=== PATIENT | female | born 1960 | race Caucasian/White ===

== ENCOUNTER 2017-06-12 16:44 | Emergency (ER) | payer BC ==
--- NOTE | 2017-06-12 18:01 | RAD ---
2 VIEWS CHEST: Date: 06/12/17 PROVIDED CLINICAL HISTORY: Cough. FINDINGS: Comparison made with study dated 02/28/17. Cardiac and mediastinal silhouette is unchanged in appearance. Vascular calcification involves the ao rtic arch. No definite focal consolidation, pleural fluid, or pneumothorax apparent. IMPRESSION: No definite evidence for an acute cardiopulmonary abnormality. POS: [facility]
[2017-06-12 19:23] LABS: #Basophils 0.1 thou/uL (0.0-0.2); #Eosinphils 0.6 thou/uL (0.0-0.7); #Lymphocytes 3.3 thou/uL (1.20-3.40); #Monocytes 0.8 thou/uL (0.11-0.59); #Neutrophils 7.6 thou/uL (1.40-6.50); %Basophils 0.9 % (0.0-1.0); %Eosinophils 4.6 % (0.0-10.0); %Lymphocytes 26.6 % (21.0-51.0); %Monocytes 6.2 % (0.0-10.0); Hematocrit 42.4 % (36.0-47.0); Red Blood Cell (RBC) Count 4.71 mill/uL (4.20-5.40); White Blood Cell (WBC) Count 12.3 thou/uL (4.8-10.8)
[2017-06-12] MEDS ORDERED: Albuterol Sulfate 2.5 mg/0.5 ml Neb ONE (19:23)
[2017-06-12] MEDS ORDERED: Ipratropium Bromide 2.5 ml Neb ONE (19:23)
[2017-06-12] MEDS ORDERED: methylPREDNISolone Sod Succ/PF 125 MG/2 ML VIAL ONE (19:26)
[2017-06-12 19:38] LABS: ALT (SGPT) 19 U/L (8-55); AST (SGOT) 14 U/L (5-34); Alkaline Phosphatase 53 U/L (40-150); Anion Gap 17 mmol/L (10-20); BUN (Urea Nitrogen) 8 mg/dL (9.8-20.1); Bilirubin, Total 0.3 mg/dL (0.2-1.2); Calc. Creatinine Clearance 0 mL/min (70-130); Calcium 9.8 mg/dL (7.8-10.44); Carbon Dioxide 24 mmol/L (22-29); Chloride 101 mmol/L (98-107); Estimated GFR-MDRD 79; Globulin 3.5 g/dL (2.4-3.5)
--- NOTE | 2017-06-17 11:40 | EKG ---
Test Reason : Blood Pressure : / mmHG Vent. Rate : 098 BPM Atrial Rate : 098 BPM P-R Int : 124 ms QRS Dur : 086 ms QT Int : 332 ms P-R-T Axes : 068 061 056 degrees QTc Int : 423 ms Normal sinus rhythm Possible Left atrial enlargement ST abnormality, possible digitalis effect Abnormal ECG Confirmed by MARTITA ABAD D.O. ([id number]), manager editorial HEATHER CRUZ ([id number]) on 06/17/2017 11:40:22 AM Referred By: Confirmed By:MARTITA ABAD D.O.
== END 2017-06-12 20:36 | disposition home or self-care (01) ==
LOC: SCSER 16:44
DX: J44.1 Chronic obstructive pulmonary disease with (acute) exacerbation (principal); I10 Essential (primary) hypertension; E78.00 Pure hypercholesterolemia, unspecified; F41.9 Anxiety disorder, unspecified; F17.210 Nicotine dependence, cigarettes, uncomplicated
CPT/HCPCS: 71020; 80053; 82553; 83880; 84484; 85025; 93005; 94640; 96374; J2930; J7611; J7644

== ENCOUNTER 2017-06-23 18:33 | Emergency (ER) | payer BC ==
[2017-06-23] MEDS ORDERED: methylPREDNISolone Sod Succ/PF 125 MG/2 ML VIAL ONE (18:53)
[2017-06-23] MEDS ORDERED: Magnesium Sulfate 2 GM/NS 0.9% 50 ML BAG ONE (18:53)
[2017-06-23] MEDS ORDERED: Water For Inject, Bacteriostat 30 ML ONE (18:53)
[2017-06-23] MEDS ORDERED: Ondansetron HCl/PF 4 MG/2 ML Vial ONE (18:53)
[2017-06-23 19:00] LABS: #Basophils 0.1 thou/uL (0.0-0.2); #Lymphocytes 0.7 thou/uL (1.20-3.40); #Monocytes 0.5 thou/uL (0.11-0.59); #Neutrophils 7.3 thou/uL (1.40-6.50); %Basophils 0.9 % (0.0-1.0); %Lymphocytes 8.6 % (21.0-51.0); %Monocytes 5.9 % (0.0-10.0); %Neutrophils 84.6 % (42.0-75.0); Hemoglobin 13.3 g/dL (12.0-16.0); Mean Corpuscular HGB CONC 33.1 g/dL (32.0-36.0); Mean Corpuscular Hemoglobin 29.5 pg (27.0-31.0); Mean Corpuscular Volume 89.3 fl (81.0-99.0); Mean Platelet Volume 6.9 fL (7.4-10.4); Platelet Count 419 thou/uL (130-400); RBC Distribution Width 11.5 % (11.5-14.5); Red Blood Cell (RBC) Count 4.49 mill/uL (4.20-5.40); White Blood Cell (WBC) Count 8.6 thou/uL (4.8-10.8)
[2017-06-23] MEDS ORDERED: Ketorolac Tromethamine 30 MG/ML VIAL ONE (19:01)
[2017-06-23 19:14] LABS: ALT (SGPT) 30 U/L (8-55); AST (SGOT) 24 U/L (5-34); Albumin 4.3 g/dL (3.5-5.0); Alkaline Phosphatase 58 U/L (40-150); Anion Gap 19 mmol/L (10-20); BUN (Urea Nitrogen) 11 mg/dL (9.8-20.1); Bilirubin, Total 0.2 mg/dL (0.2-1.2); CK (CPK) 374 U/L (29-168); Calc. Creatinine Clearance 0 mL/min (70-130); Calcium 9.6 mg/dL (7.8-10.44); Carbon Dioxide 20 mmol/L (22-29); Chloride 99 mmol/L (98-107); Estimated GFR-MDRD 75; Globulin 3.6 g/dL (2.4-3.5); Glucose 165 mg/dL (70-105); Lipase 11 U/L (8-78); Potassium 4.1 mmol/L (3.5-5.1); Protein, Total 7.9 g/dL (6.0-8.3); Sodium 134 mmol/L (136-145)
[2017-06-23 19:15] LABS: CKMB 3.6 ng/mL (0-6.6); Troponin I Less than 0.010 ng/mL (< 0.028)
--- NOTE | 2017-06-23 19:42 | RAD ---
NO DICTATION POS: [facility]
[2017-06-23] MEDS ORDERED: Albuterol Sulfate 2.5 mg/0.5 ml Neb ONE (19:44)
[2017-06-23] MEDS ORDERED: Albuterol Sulfate 2.5 mg/3 ml Neb ONE (19:45)
--- NOTE | 2017-06-27 07:56 | RAD ---
PORTABLE CHEST ONE VIEW 06/23/17 at 7:02 p.m. HISTORY: Dyspnea. Cough. FINDINGS: Comparison made to exam of 06/12/17. The heart size is normal. The aorta is tortuous. The lungs are well expanded without focal areas of c onsolidation, pneumothoraces or pleural effusions. IMPRESSION: No radiographic evidence of acute cardiopulmonary process. POS: [facility]
== END 2017-06-23 20:45 | disposition home or self-care (01) ==
LOC: SCSER 18:33
DX: J44.1 Chronic obstructive pulmonary disease with (acute) exacerbation (principal); R07.89 Other chest pain; E78.00 Pure hypercholesterolemia, unspecified; F41.9 Anxiety disorder, unspecified; I45.6 Pre-excitation syndrome; I10 Essential (primary) hypertension; Z87.891 Personal history of nicotine dependence; Z79.51 Long term (current) use of inhaled steroids; Z71.6 Tobacco abuse counseling
CPT/HCPCS: 71010; 80053; 82550; 82553; 83605; 83690; 83880; 84484; 85025; 87040; 93005; 96365; 96375; 99406; J1885; J2405; J2930; J3475; J7611; J7620

== ENCOUNTER 2017-09-23 19:04 | Emergency (ER) | payer BC, SELFPAY ==
[2017-09-23 19:55] LABS: #Eosinphils 0.1 thou/uL (0.0-0.7); #Lymphocytes 1.1 thou/uL (1.20-3.40); #Monocytes 0.3 thou/uL (0.11-0.59); #Neutrophils 11.2 thou/uL (1.40-6.50); %Basophils 0.3 % (0.0-1.0); %Eosinophils 0.6 % (0.0-10.0); %Lymphocytes 8.3 % (21.0-51.0); %Neutrophils 88.7 % (42.0-75.0); Mean Corpuscular HGB CONC 32.7 g/dL (32.0-36.0); Mean Corpuscular Hemoglobin 29.8 pg (27.0-31.0); Mean Corpuscular Volume 91.2 fl (81.0-99.0); Mean Platelet Volume 6.9 fL (7.4-10.4); Platelet Count 478 thou/uL (130-400); RBC Distribution Width 12.5 % (11.5-14.5); Red Blood Cell (RBC) Count 4.69 mill/uL (4.20-5.40); White Blood Cell (WBC) Count 12.7 thou/uL (4.8-10.8)
[2017-09-23 20:19] LABS: ALT (SGPT) 15 U/L (8-55); AST (SGOT) 14 U/L (5-34); Albumin 4.6 g/dL (3.5-5.0); Alkaline Phosphatase 60 U/L (40-150); Anion Gap 17 mmol/L (10-20); BUN (Urea Nitrogen) 10 mg/dL (9.8-20.1); Bilirubin, Total 0.2 mg/dL (0.2-1.2); CK (CPK) 104 U/L (29-168); Calc. Creatinine Clearance 0 mL/min (70-130); Calcium 9.6 mg/dL (7.8-10.44); Carbon Dioxide 20 mmol/L (22-29); Chloride 103 mmol/L (98-107); Estimated GFR-MDRD 77; Glucose 119 mg/dL (70-105); Potassium 4.3 mmol/L (3.5-5.1); Protein, Total 7.6 g/dL (6.0-8.3); Sodium 136 mmol/L (136-145)
[2017-09-23 20:23] LABS: CKMB 2.1 ng/mL (0-6.6); Troponin I Less than 0.010 ng/mL (< 0.028)
[2017-09-23] MEDS ORDERED: Albuterol Sulfate 2.5 mg/3 ml Neb ONE (20:33)
[2017-09-23] MEDS ORDERED: methylPREDNISolone Sod Succ/PF 125 MG/2 ML VIAL ONE (20:44)
[2017-09-23] MEDS ORDERED: Azithromycin 500 MG VIAL ONE (20:45)
[2017-09-23] MEDS ORDERED: Azithromycin 500 MG in Sodium Chloride 0.9% 250 ML 250 ML IVPB SCH (21:00)
--- NOTE | 2017-09-23 21:34 | RAD ---
AP VIEW OF THE CHEST: 09/23/17 INDICATION: Shortness of breath and dyspnea. COMPARISON: Prior exam dated 06/23/17. FINDINGS: There is some patchy areas of reticulonodularity seen within the right lung base which can be seen wi th a bronchiolitis. No focal consolidation is evident. No acute osseous abnormality is noted. Heart s ize and pulmonary vasculature is within normal limits. IMPRESSION: New tree-in-bud type nodularity within the right lower lobe can be see with a bronchiolitis. This can be infectious or inflammatory etiology. Recommend radiographic followup to resolution. POS: [facility]
== END 2017-09-23 21:52 | disposition home or self-care (01) ==
LOC: ERS 19:04
DX: J44.1 Chronic obstructive pulmonary disease with (acute) exacerbation (principal); I45.6 Pre-excitation syndrome; I10 Essential (primary) hypertension; F41.9 Anxiety disorder, unspecified; F17.210 Nicotine dependence, cigarettes, uncomplicated
CPT/HCPCS: 71045; 80053; 82550; 82553; 84484; 85025; 85379; 93005; 94640; 94760; 96361; 96374; 96375; J0456; J2930; J7050; J7611; J7620

== ENCOUNTER 2018-01-27 11:20 | Emergency (ER) | payer BC ==
[2018-01-27] MEDS ORDERED: Albuterol Sulfate 2.5 mg/0.5 ml Neb ONE (11:49)
[2018-01-27 11:58] LABS: #Eosinphils 0.6 thou/uL (0.0-0.7); #Lymphocytes 1.8 thou/uL (1.20-3.40); #Monocytes 0.7 thou/uL (0.11-0.59); #Neutrophils 6.6 thou/uL (1.40-6.50); %Basophils 0.4 % (0.0-1.0); %Eosinophils 6.4 % (0.0-10.0); %Lymphocytes 18.6 % (21.0-51.0); %Neutrophils 67.6 % (42.0-75.0); Hemoglobin 13.5 g/dL (12.0-16.0); Mean Corpuscular Volume 88.2 fL (78.0-98.0); Mean Platelet Volume 6.9 fL (7.4-10.4); Platelet Count 498 thou/uL (130-400); RBC Distribution Width 12.2 % (11.5-14.5); Red Blood Cell (RBC) Count 4.52 mill/uL (4.20-5.40); White Blood Cell (WBC) Count 9.8 thou/uL (4.8-10.8)
[2018-01-27] MEDS ORDERED: Dexamethasone 4 mg/ml Vial ONE (12:03)
[2018-01-27] MEDS ORDERED: Magnesium Sulfate 2 GM in Sodium Chloride 0.9% 100 ML IVPB SCH (12:15)
[2018-01-27 12:22] LABS: ALT (SGPT) 17 U/L (8-55); AST (SGOT) 27 U/L (5-34); Albumin 4.3 g/dL (3.5-5.0); Alkaline Phosphatase 64 U/L (40-150); Anion Gap 19 mmol/L (10-20); BUN (Urea Nitrogen) 12 mg/dL (9.8-20.1); Bilirubin, Total 0.4 mg/dL (0.2-1.2); CK (CPK) 77 U/L (29-168); Calc. Creatinine Clearance 0 mL/min (70-130); Calcium 9.4 mg/dL (7.8-10.44); Carbon Dioxide 19 mmol/L (22-29); Chloride 104 mmol/L (98-107); Estimated GFR-MDRD 77; Globulin 4.1 g/dL (2.4-3.5); Glucose 100 mg/dL (70-105); Lipase 19 U/L (8-78); Potassium 4.9 mmol/L (3.5-5.1); Protein, Total 8.4 g/dL (6.0-8.3); Sodium 137 mmol/L (136-145)
[2018-01-27 12:23] LABS: CKMB 2.2 ng/mL (0-6.6); Troponin I Less than 0.010 ng/mL (< 0.028)
--- NOTE | 2018-01-27 12:45 | RAD ---
RADIOGRAPH CHEST 1 VIEW: HISTORY: 57-year-old female with dyspnea. FINDINGS: There is hyperinflation of the lungs, consistent with COPD. There is no evidence of air space densit y, pneumothorax, or pulmonary edema. The lateral costophrenic angles are sharp. The cardiac size is normal. IMPRESSION: 1. No acute pulmonary findings. 2. Emphysema. isael [] POS: [facility]
--- NOTE | 2018-02-03 20:59 | EKG ---
Test Reason : Blood Pressure : / mmHG Vent. Rate : 103 BPM Atrial Rate : 103 BPM P-R Int : 120 ms QRS Dur : 082 ms QT Int : 328 ms P-R-T Axes : 068 056 056 degrees QTc Int : 429 ms Sinus tachycardia Possible Left atrial enlargement Borderline ECG Confirmed by SONYA CRUZ, RENAY ([id number]), editor continuity and script HEATHER CRUZ ([id number]) on 02/03/2018 8:59:15 PM Referred By: Confirmed By:RENAY HASSAN MD
== END 2018-01-27 14:08 | disposition home or self-care (01) ==
LOC: ERS 11:20
DX: J45.901 Unspecified asthma with (acute) exacerbation (principal); R00.0 Tachycardia, unspecified; I49.9 Cardiac arrhythmia, unspecified; I10 Essential (primary) hypertension
CPT/HCPCS: 36415; 71045; 80053; 82550; 82553; 83690; 83880; 84484; 85025; 93005; 94644; 94760; 96361; 96365; 96375; J1100; J3475; J7050; J7611; J7620

== ENCOUNTER 2018-02-01 18:54 | Observation (INO) | payer BC ==
[2018-02-01] MEDS ORDERED: Albuterol Sulfate 2.5 mg/3 ml Neb ONE (19:50)
[2018-02-01] MEDS ORDERED: Dexamethasone 4 mg/ml Vial ONE (19:52)
[2018-02-01] MEDS ORDERED: Magnesium Sulfate 2 GM in Sodium Chloride 0.9% 100 ML IVPB ONE (20:00)
[2018-02-01 20:06] LABS: Mean Corpuscular HGB CONC 33.9 g/dL (32.0-36.0); Mean Corpuscular Hemoglobin 30.1 pg (27.0-31.0); Mean Corpuscular Volume 88.8 fL (78.0-98.0); Mean Platelet Volume 6.7 fL (7.4-10.4); Platelet Count 530 thou/uL (130-400); RBC Distribution Width 12.5 % (11.5-14.5); Red Blood Cell (RBC) Count 4.64 mill/uL (4.20-5.40); White Blood Cell (WBC) Count 13.4 thou/uL (4.8-10.8)
--- NOTE | 2018-02-01 20:10 | RAD ---
AP VIEW OF THE CHEST: 02/01/18 INDICATION: Shortness of breath. COMPARISON: Prior exam dated 01/27/18. IMPRESSION: No acute cardiopulmonary abnormality. The examination does not appear appreciably changed from the co mparison. Chronic lung changes are stable. POS: [facility]
[2018-02-01 20:24] LABS: Band 3 % (5-11); Lymphocytes 5 % (21-51); MDiff Complete? YES; Monocytes 2 % (0-10); Neutrophil 87 % (42-75); PLT Morphology Comment Appears Increased; RBC Morphology Normal; Reactive Lymphocytes 2 % (0-10)
[2018-02-01 20:28] LABS: ALT (SGPT) 24 U/L (8-55); AST (SGOT) 19 U/L (5-34); Albumin 4.8 g/dL (3.5-5.0); Alkaline Phosphatase 67 U/L (40-150); Anion Gap 17 mmol/L (10-20); BUN (Urea Nitrogen) 11 mg/dL (9.8-20.1); Bilirubin, Total 0.2 mg/dL (0.2-1.2); CK (CPK) 58 U/L (29-168); Calc. Creatinine Clearance 0 mL/min (70-130); Calcium 10.2 mg/dL (7.8-10.44); Carbon Dioxide 24 mmol/L (22-29); Chloride 102 mmol/L (98-107); Estimated GFR-MDRD 71; Globulin 3.6 g/dL (2.4-3.5); Glucose 128 mg/dL (70-105); Lipase 20 U/L (8-78); Potassium 4.6 mmol/L (3.5-5.1); Protein, Total 8.4 g/dL (6.0-8.3); Sodium 138 mmol/L (136-145)
[2018-02-01 20:31] LABS: CKMB 2.1 ng/mL (0-6.6); Troponin I Less than 0.010 ng/mL (< 0.028)
[2018-02-01] MEDS ORDERED: Ondansetron ODT 4 MG TAB PO PRN (22:29)
[2018-02-01] MEDS ORDERED: Acetaminophen 325 MG TAB PO PRN (22:29)
--- NOTE | 2018-02-01 22:37 | PDOC.FPRHP ---
Addendum entered and electronically signed by Jer Oates MD 02/02/18 07:34: Addendum to add Vitals and PMHx - PMHx: HTN, Anxiety, COPD - PSH: , hysterectomy, jose, appy - Allergies: Latex, azithromycin, morphine - Meds: Currently taking albuterol, prednisone - FH: Mother with breast cancer - Social: 30 pack year use, 1/5 whiskey use for 20 year, no drug use. Vitals:163/90, Pulse 105, Resp 20, Tmax 98, O2 96% on RA Original Note: - History of Present Illness Chief Complaint: SOB History of Present Illness: 57F presents for SOB. This started 5 days prior. It happened insidiously with no known cause. She presented to ER where she was given albuterol and prednisone , with diagnosis of asthma. Despite treatment, symptom continued. She then presented to ER again today. Her SOB is associated with coughing, productive of clear sputum. She specifically denies, fever, chills, chest pain, palpitation, anorexia, vomiting. In the ER, she received Levaquin 750, magnesium 2 mg, decadron 10 mg, 1L NS, 1x duoneb and albuterol treatment. She states she still feels SOB after treatment. - Allergies/Adverse Reactions Allergies Allergy/AdvReac Type Severity Reaction Status Date / Time latex Allergy Intermediate Verified 02/01/18 22:19 azithromycin Allergy Verified 02/01/18 22:19 morphine Allergy Verified 02/01/18 22:19 - Home Medications Medication Instructions Recorded Confirmed Type Albuterol Sulfate [Ventolin Neb] 0.5 ml NEB Q4H PRN 11/24/16 02/01/18 History Albuterol Sulfate [Ventolin Hfa] 1 - 2 puff INH Q4H PRN 02/01/18 02/01/18 History Fluticasone/Salmeterol [Advair 1 inh INH DAILY 02/01/18 02/01/18 History Diskus 500/50] predniSONE 60 mg PO QAM-WM 02/01/18 02/01/18 History Lisinopril/Hydrochlorothiazide 1 tab PO DAILY 02/02/18 02/02/18 History [Lisinopril-Hctz 10-12.5 mg Tab] Ventolin HFA Inhaler 1 inh PO DAILY 02/02/18 02/02/18 History - History PMHx: PSHx: FHx: Social: - Review of Systems General: denies: fever/chills, weight/appetite/sleep changes Eyes: denies: vision changes ENT: denies: nasal congestion Respiratory: reports: cough, shortness of breath Cardiovascular: denies: chest pain, palpitation Gastrointestinal: denies: nausea, vomiting, constipation, abdominal pain Genitourinary: denies: dysuria, discharge Skin: denies: rashes, itching Musculoskeletal: denies: pain Neurological: denies: numbness, weakness Psychological: reports: anxiety, depression - Vital signs BP: [] HR: [] RR: [] Tmax: [] Pox: []% on [] Wt: [] - Physical Exam Constitutional: NAD, awake, alert and oriented, well developed HEENT: normocephalic and atraumatic, grossly normal vision, normal nasal mucosa , MMM Neck: supple, trachea midline Chest: no-tender to palpation, no lesions Heart: RRR, normal S1/S2, no murmurs/rubs/gallops Lungs: other (Wheezing, diminished lung sound) Abdomen: soft, non-tender Musculoskeletal: normal structure Neurological: no focal deficit Skin: no rash/lesions Heme/Lymphatic: no unusual bruising or bleeding Psychiatric: normal mood and affect, good judgment and insight, intact recent and remote memory FMR H&P: Results - Labs Result Diagrams: 02/01/18 19:54 02/01/18 19:54 Lab results: WBC 13.4 thou/uL (4.8-10.8) H 02/01/18 19:54 Hgb 14.0 g/dL (12.0-16.0) 02/01/18 19:54 Hct 41.2 % (36.0-47.0) 02/01/18 19:54 MCV 88.8 fL (78.0-98.0) 02/01/18 19:54 Plt Count 530 thou/uL (130-400) H 02/01/18 19:54 Band Neuts % (Manual) 3 % (5-11) L 02/01/18 19:54 Sodium 138 mmol/L (136-145) 02/01/18 19:54 Potassium 4.6 mmol/L (3.5-5.1) 02/01/18 19:54 Chloride 102 mmol/L (98-107) 02/01/18 19:54 Carbon Dioxide 24 mmol/L (22-29) 02/01/18 19:54 BUN 11 mg/dL (9.8-20.1) 02/01/18 19:54 Creatinine 0.83 mg/dL (0.6-1.1) 02/01/18 19:54 Glucose 128 mg/dL (70-105) H 02/01/18 19:54 Calcium 10.2 mg/dL (7.8-10.44) 02/01/18 19:54 Total Bilirubin 0.2 mg/dL (0.2-1.2) 02/01/18 19:54 AST 19 U/L (5-34) 02/01/18 19:54 ALT 24 U/L (8-55) 02/01/18 19:54 Alkaline Phosphatase 67 U/L (40-150) 02/01/18 19:54 Creatine Kinase 58 U/L (29-168) 02/01/18 19:54 CK-MB (CK-2) 2.1 ng/mL (0-6.6) 02/01/18 19:54 B-Natriuretic Peptide Less than 10.0 pg/mL (0-100) 02/01/18 19:54 Serum Total Protein 8.4 g/dL (6.0-8.3) H 02/01/18 19:54 Albumin 4.8 g/dL (3.5-5.0) 02/01/18 19:54 Lipase 20 U/L (8-78) 02/01/18 19:54 - EKG Interpretation EKG: NSR, prolong QT FMR H&P: A/P - Problem List (1) COPD exacerbation Current Visit: No Status: Acute Priority: High Code(s): J44.1 - CHRONIC OBSTRUCTIVE PULMONARY DISEASE W (ACUTE) EXACERBATION Assessment and Plan: COPD vs asthma. - At this time, continue abx, steroid, duoneb and O2 as needed - Follow up with procalcitonin, dc abx if negative - Possible discharge tomorrow if clinical picture improves. (2) Anxiety Current Visit: No Status: Chronic Code(s): F41.9 - ANXIETY DISORDER, UNSPECIFIED Assessment and Plan: Chronic issue which patient does not take medication for. At this time stable Advised follow up with PCP on discharge (3) HTN (hypertension) Current Visit: No Status: Chronic Code(s): I10 - ESSENTIAL (PRIMARY) HYPERTENSION Qualifiers: Hypertension type: essential hypertension Qualified Code(s): I10 - Essential (primary) hypertension Assessment and Plan: Chronic issue which patient is not taking medication for. BP elevated but patient not symptomatic and not at HTN urgency level. Plan, control BP as needed while in hospital. Advise follow up with PCP on discharge FMR H&P: Upper Level - Plan Date/Time: 02/01/18 7971 I, [], have evaluated this patient and agree with findings/plan as outlined by commercial intern resident. Pertinent changes/additions are listed here. Attending Addendum - Attending Addendum Date/Time: 02/02/18 3253 I personally evaluated the patient and discussed the management with Dr. Oates. I agree with the History, Examination, Assessment and Plan documented above with any addition or exceptions noted below. Please see event note from 02/01/18 for full attending details.
--- NOTE | 2018-02-01 22:45 | PDOC.EVN ---
Attending Addendum - Attending Addendum Date/Time: 02/01/18 7822 I personally evaluated the patient and discussed the management with Dr. Hernandez/ Lashon. I agree with the History, Examination, Assessment and Plan documented in their H &P with any addition or exceptions noted below. Patient is 57 yo F with history of asthma versus COPD, HTN, and medication noncompliance who presents with several day history of worsening shortness of breath. Reports that symptoms began last week, when she felt difficulty catching her breath and some chest tightness. Reports that it improved after an ER visit where she was given neb treatments and steroids and antibiotics. Over the last few days, had return of symptoms with worsening this morning. Reports that she was dyspneic at rest today which prompted return to ER. Reports that she has "inhalers" at home but does not elaborate on which medications those are. She states that she sees Dr. Kilgore for her lung issues. Also reports not taking medication for elevated BP. She denies f/c/n/v/d. Complains of some L sided pleuritic chest pain that is transient and lasts <1 second. Reports onset of cough this evening that has been productive of some clear sputum, no previous cough. On exam, vitals are stable. Her oxygenation is within normal limits. Exam shows some diminished air entry but no wheezing at this time. RRR. Abdomen soft, no c/c/e. Labs are overall stable with the exception of noted chronic thrombocytosis (noted back as far as 2013). CXR consistent with COPD but no acute infiltrate or pumonary process. Patient will be placed in observation status for the followin. Likely COPD with mild exacerbation- wheezing improved after ER treatments, and not hypoxic. Mild exacerbation at the current time. Will continue neb treatments, steroids, and begin Azithromycin therapy for now and check PCT in the AM. Non toxic appearing. If doing well, can likely consider discharge tomorrow afternoon with outpatient regimen. 2. HTN-patient not on current therapy, will give PRN medications for BP elevations as needed. 3. Thrombocytosis-chronic. Unknown etiology, likely reactive or baseline due to chronicity. Monitor. Consider outpatient workup if continues.
[2018-02-01 22:58] VITALS: BMI 29.5
--- NOTE | 2018-02-02 06:16 | PDOC.FM ---
- Subjective Subjective: Ms King is a 57yo female with pmh of COPD and anxiety. She reports quitting smoking >1yr ago. Reports improvement in chest tightness and SOB. Does report some heart palpitations related to feeling anxious. Denies Chest pain, cough, fever, chills. No overnight events. Expresses she would like to f/u with a PCP for management of her anxiety. - Objective MAR Reviewed: Yes Vital Signs & Weight: Vital Signs (12 hours) Temp Pulse Resp BP BP BP Pulse Ox 02/02/18 05:50 96 16 97 02/02/18 02:59 97.7 F 95 20 157/79 H 93 L 02/02/18 02:18 95 18 94 L 02/01/18 23:37 102 H 18 183/82 H 02/01/18 23:27 97 18 96 02/01/18 21:54 97.9 F 99 20 178/87 H 96 Weight Weight 76.884 kg I&O: 01/31/18 02/01/18 02/02/18 06:59 06:59 06:59 Intake Total 1090 Output Total 1750 Balance -660 Result Diagrams: 02/01/18 19:54 02/01/18 19:54 <Iris Romero - Last Filed: 02/02/18 11:31> - Objective Vital Signs & Weight: Vital Signs (12 hours) Temp Pulse Resp BP Pulse Ox 02/02/18 09:47 99 16 97 02/02/18 07:47 98.0 F 94 16 02/02/18 07:11 98.0 F 94 16 157/91 H 96 02/02/18 05:50 96 16 97 02/02/18 02:59 97.7 F 95 20 157/79 H 93 L 02/02/18 02:18 95 18 94 L Weight Weight 76.884 kg I&O: 02/01/18 02/02/18 02/03/18 06:59 06:59 06:59 Intake Total 1090 Output Total 1750 1000 Balance -660 -1000 Result Diagrams: 02/01/18 19:54 02/01/18 19:54 <Ubaldo Villa - Last Filed: 02/02/18 14:00> Phys Exam - Physical Examination Constitutional: NAD Respiratory: no wheezing, clear to auscultation bilateral Cardiovascular: RRR, no significant murmur Gastrointestinal: soft, non-tender, positive bowel sounds distended Musculoskeletal: no edema Psychiatric: normal affect, A&O x 3 Deviation from normal: anxious Skin: cap refill <2 seconds <Iris Romero - Last Filed: 02/02/18 11:31> Dx/Plan (1) COPD exacerbation Code(s): J44.1 - CHRONIC OBSTRUCTIVE PULMONARY DISEASE W (ACUTE) EXACERBATION Status: Acute (2) Anxiety Code(s): F41.9 - ANXIETY DISORDER, UNSPECIFIED Status: Chronic (3) HTN (hypertension) Code(s): I10 - ESSENTIAL (PRIMARY) HYPERTENSION Status: Chronic Qualifiers: Hypertension type: essential hypertension Qualified Code(s): I10 - Essential (primary) hypertension (4) Tobacco abuse Code(s): Z72.0 - TOBACCO USE Status: Chronic (5) Thrombocytosis Status: Chronic - Plan Plan: COPD exacerbation - BNP<10, Trop neg - CXR: c/w COPD- flattened diaphragm, hyperinflation, no infiltrate or acute process - Wheezing improved in ED with duonebs and steroids - Cont Prednisone, d/c with 5 day course - Duonebs - O2 titrated to maintain SpO2 88-92% - Currently 97% on RA - Procalcitonin <0.02 - D/c Levaquin - 5 days of Doxycycline - Sees Dr Kilgore outpt for COPD management - Takes Advair daily, Ventolin PRN - D/c with Combivent - No wheezing on exam this AM HTN - 157/79 - Home med lisinopril-HCTZ 10-12.5, noncompliant - Advised f/u with PCP Anxiety - F/u with PCP for further management - Home med sertraline, hasn't been taking Leukocytosis - likely 2/2 to recent steroid use Thrombocytosis, chronic - Noted as far back as 2013 - Unknown etiology - Consider outpt workup Hx Tobacco Abuse - Quit 1 yr ago Migraine Headaches, stable - Takes Imitrex 25mg PRN Code Status: FULL DVT ppx: Lovenox Dispo: Likely today <Iris Romero - Last Filed: 02/02/18 11:31> Attending Addendum - Attending Addendum Date/Time: 02/02/18 1400 I personally evaluated the patient and discussed the management with Dr. Romero I agree with the History, Examination, Assessment and Plan documented above with any addition or exceptions noted below.Patient is stable for dismissal. <Ubaldo Villa - Last Filed: 02/02/18 14:00>
[2018-02-02 07:37] VITALS: BP 157/91; TEMP 98
[2018-02-02] MEDS ORDERED: methylPREDNISolone 4 mg Tablet PO SCH (09:00)
[2018-02-02] MEDS ORDERED: Enoxaparin Sodium 40 MG/0.4 ML SYRINGE SC SCH (09:00)
[2018-02-02] MEDS ORDERED: predniSONE 20 MG TAB PO SCH (09:30)
[2018-02-02] MEDS ORDERED: Azithromycin 500 MG in Sodium Chloride 0.9% 250 ML 250 ML IVPB SCH (21:00)
--- NOTE | 2018-02-03 08:12 | DIS-2 ---
DATE OF ADMISSION: 02/01/2018 DATE OF DISCHARGE: 02/02/2018 RESIDENT: Iris Romero, PGY1 ADMITTING ATTENDING: Storm Carr MD DISCHARGE ATTENDING: Ubaldo Villa MD CONSULTATIONS: None. PROCEDURES: None. PRIMARY DIAGNOSIS: 1. Chronic obstructive pulmonary disease exacerbation. SECONDARY DIAGNOSES: 1. Anxiety. 2. Hypertension. 3. Tobacco abuse. 4. Thrombocytosis. 5. Leukocytosis. 6. Migraine headaches, stable. DISCHARGE MEDICATIONS: 1. Ventolin one-two puffs inhaled q.4 hours p.r.n. 2. Doxycycline 100 mg b.i.d. for 5 days. 3. Advair one inhalation daily. 4. Combivent one inhalation four times daily. 5. Lisinopril/hydrochlorothiazide 10/12.5 mg daily. 6. Prednisone 40 mg daily for five days. DISCONTINUED MEDICATIONS: None. HISTORY OF PRESENT ILLNESS AND HOSPITAL COURSE: Ms. King is a 57-year-old female, who presented with shortness of breath, coughing, and increased sputum production. She had been compliant with her COPD medications. She did not require any oxygen. She showed clinical improvement with a dose of corticosteroids, antibiotics, and the addition of the Combivent inhaler in addition to her Advair and albuterol she had been using at home. She was discharged on 5 days of doxycycline and prednisone with Jose. Her chronic conditions of hypertension and anxiety were stable on her home medications. DISPOSITION: Stable. DISCHARGE INSTRUCTIONS: 1. Location: Home. 2. Diet: Low sodium. 3. Activity: No restrictions. 4. Follow up with Dr. Kilgore in the next 1-2 weeks. SANDRA
[2018-02-03] MEDS ORDERED: predniSONE 20 MG TAB PO SCH (09:00)
== END 2018-02-02 11:57 | disposition home or self-care (01) ==
LOC: ERS 18:54 → 2SW 21:55
PROVIDERS: ADMIT Student in an Organized Health Care Education/Training Program; ATTEND Student in an Organized Health Care Education/Training Program
DX: J45.901 Unspecified asthma with (acute) exacerbation (principal); R00.0 Tachycardia, unspecified; I45.6 Pre-excitation syndrome; I10 Essential (primary) hypertension; E78.00 Pure hypercholesterolemia, unspecified
CPT/HCPCS: 36415; 71045; 80053; 82550; 82553; 83690; 83880; 84145; 84484; 85025; 85379; 87040; 93005; 94640; 96365; 96366; 96367; 96375; G0378; J1100; J1650; J1956; J3475; J7050; J7506; J7611; J7620

== ENCOUNTER 2018-07-10 14:27 | Emergency (ER) | payer BC ==
[2018-07-10 15:10] LABS: #Basophils 0.1 thou/uL (0.0-0.2); #Eosinphils 0.7 thou/uL (0.0-0.7); #Lymphocytes 2.4 thou/uL (1.20-3.40); #Monocytes 0.8 thou/uL (0.11-0.59); #Neutrophils 7.7 thou/uL (1.40-6.50); %Basophils 0.9 % (0.0-1.0); %Eosinophils 5.8 % (0.0-10.0); %Lymphocytes 20.9 % (21.0-51.0); %Monocytes 6.7 % (0.0-10.0); %Neutrophils 65.7 % (42.0-75.0); Hemoglobin 13.6 g/dL (12.0-16.0); Mean Corpuscular HGB CONC 33.9 g/dL (32.0-36.0); Mean Corpuscular Hemoglobin 29.7 pg (27.0-31.0); Mean Corpuscular Volume 87.8 fL (78.0-98.0); Platelet Count 500 thou/uL (130-400); RBC Distribution Width 12.6 % (11.5-14.5); Red Blood Cell (RBC) Count 4.58 mill/uL (4.20-5.40); White Blood Cell (WBC) Count 11.7 thou/uL (4.8-10.8)
[2018-07-10 15:29] LABS: ALT (SGPT) 20 U/L (8-55); AST (SGOT) 14 U/L (5-34); Albumin 4.3 g/dL (3.5-5.0); Alkaline Phosphatase 67 U/L (40-150); Anion Gap 15 mmol/L (10-20); BUN (Urea Nitrogen) 12 mg/dL (9.8-20.1); Bilirubin, Total 0.3 mg/dL (0.2-1.2); CK (CPK) 94 U/L (29-168); Calc. Creatinine Clearance 0 mL/min (70-130); Calcium 9.9 mg/dL (7.8-10.44); Carbon Dioxide 24 mmol/L (22-29); Chloride 101 mmol/L (98-107); Estimated GFR-MDRD 76; Globulin 3.7 g/dL (2.4-3.5); Glucose 91 mg/dL (70-105); Potassium 3.8 mmol/L (3.5-5.1); Sodium 136 mmol/L (136-145)
--- NOTE | 2018-07-10 16:06 | RAD ---
CHEST ONE VIEW: 07/10/18 INDICATION: Shortness of breath. COMPARISON: Prior dated 02/01/18. FINDINGS: No consolidation, pleural effusion or pneumothorax is evident. The lungs are hyperinflated. IMPRESSION: Hyperinflated lungs. No definite consolidation, pleural effusion or pneumothorax demonstrated. POS: [facility]
[2018-07-10] MEDS ORDERED: methylPREDNISolone Sod Succ/PF 125 MG/2 ML VIAL ONE (16:33)
--- NOTE | 2018-07-14 10:53 | EKG ---
Test Reason : SOB Blood Pressure : / mmHG Vent. Rate : 111 BPM Atrial Rate : 111 BPM P-R Int : 118 ms QRS Dur : 076 ms QT Int : 324 ms P-R-T Axes : 063 055 045 degrees QTc Int : 440 ms Sinus tachycardia Possible Left atrial enlargement Borderline ECG Confirmed by SERGEY BAUMAN DO ([id number]), marketing editor BRENDAN REYNOSO ([id number]) on 07/14/2018 10:52:46 AM Referred By: Confirmed By:SERGEY ABUMAN DO
== END 2018-07-10 17:36 | disposition home or self-care (01) ==
LOC: ERS 14:27
DX: J44.1 Chronic obstructive pulmonary disease with (acute) exacerbation (principal); I49.9 Cardiac arrhythmia, unspecified; I45.6 Pre-excitation syndrome; J44.9 Chronic obstructive pulmonary disease, unspecified; F41.9 Anxiety disorder, unspecified; F17.210 Nicotine dependence, cigarettes, uncomplicated; Z79.51 Long term (current) use of inhaled steroids; Z79.899 Other long term (current) drug therapy
CPT/HCPCS: 71045; 80053; 82550; 84484; 85025; 93005; 94640; 96361; 96374; J2930; J7620

== ENCOUNTER 2019-03-02 10:23 | Emergency (ER) | payer BC ==
--- NOTE | 2019-03-02 11:27 | RAD ---
CHEST 1 VIEW: HISTORY: Shortness of breath. COMPARISON: Radiograph 07/10/2018. FINDINGS: Lungs are mildly hyperinflated. No focal airspace consolidation, pneumothorax, or effusion. Low-gra de scarring of lung apices. Cardiac silhouette and mediastinal contours within normal limits. No acute osseous abnormality. Left distal clavicular osteolysis. IMPRESSION: No acute intrathoracic abnormality. POS: [facility]
[2019-03-02 11:37] LABS: #Basophils 0.1 thou/uL (0.0-0.2); #Eosinphils 0.1 thou/uL (0.0-0.7); #Lymphocytes 2.1 thou/uL (1.20-3.40); #Monocytes 0.8 thou/uL (0.11-0.59); #Neutrophils 6.2 thou/uL (1.40-6.50); %Basophils 0.8 % (0.0-1.0); %Lymphocytes 22.8 % (21.0-51.0); %Monocytes 8.2 % (0.0-10.0); %Neutrophils 67.2 % (42.0-75.0); Hemoglobin 13.8 g/dL (12.0-16.0); Mean Corpuscular HGB CONC 34.2 g/dL (32.0-36.0); Mean Corpuscular Hemoglobin 30.3 pg (27.0-31.0); Mean Corpuscular Volume 88.8 fL (78.0-98.0); Mean Platelet Volume 7.3 fL (7.4-10.4); Platelet Count 488 thou/uL (130-400); RBC Distribution Width 12.5 % (11.5-14.5); Red Blood Cell (RBC) Count 4.54 mill/uL (4.20-5.40); White Blood Cell (WBC) Count 9.2 thou/uL (4.8-10.8)
[2019-03-02 11:57] LABS: ALT (SGPT) 15 U/L (8-55); AST (SGOT) 13 U/L (5-34); Albumin 4.4 g/dL (3.5-5.0); Alkaline Phosphatase 61 U/L (40-150); Anion Gap 13 mmol/L (10-20); BUN (Urea Nitrogen) 12 mg/dL (9.8-20.1); Bilirubin, Total 0.3 mg/dL (0.2-1.2); Calc. Creatinine Clearance 0 mL/min (70-130); Calcium 10.2 mg/dL (7.8-10.44); Carbon Dioxide 25 mmol/L (22-29); Chloride 102 mmol/L (98-107); Estimated GFR-MDRD 76; Globulin 3.4 g/dL (2.4-3.5); Glucose 101 mg/dL (70-105); Potassium 3.9 mmol/L (3.5-5.1); Protein, Total 7.8 g/dL (6.0-8.3); Sodium 136 mmol/L (136-145)
== END 2019-03-02 12:56 | disposition home or self-care (01) ==
LOC: ERS 10:23
DX: R06.02 Shortness of breath (principal); I45.6 Pre-excitation syndrome; I10 Essential (primary) hypertension; E78.00 Pure hypercholesterolemia, unspecified; J44.9 Chronic obstructive pulmonary disease, unspecified; F41.9 Anxiety disorder, unspecified; F17.210 Nicotine dependence, cigarettes, uncomplicated; K21.9 Gastro-esophageal reflux disease without esophagitis
CPT/HCPCS: 36415; 71046; 80053; 84484; 85025; 93005

== ENCOUNTER 2021-04-13 12:01 | Emergency (ER) | payer BC | END 2021-04-13 14:14 | disposition home or self-care (01) | LOC: ERS 12:01 | DX: J44.1 Chronic obstructive pulmonary disease with (acute) exacerbation (principal); J02.9 Acute pharyngitis, unspecified; I10 Essential (primary) hypertension; R00.0 Tachycardia, unspecified; K21.9 Gastro-esophageal reflux disease without esophagitis; E78.00 Pure hypercholesterolemia, unspecified; Z87.891 Personal history of nicotine dependence | CPT/HCPCS: 71046 ==

== ENCOUNTER 2021-10-28 09:29 | Emergency (ER) | payer BC ==
[2021-10-28] MEDS ORDERED: methylPREDNISolone Sod Succ/PF 125 MG/2 ML VIAL ONE ×2 (10:29→10:32)
[2021-10-28 10:59] LABS: #Eosinphils 0.1 thou/uL (0.0-0.7); #Monocytes 1.1 thou/uL (0.11-0.59); #Neutrophils 7.3 thou/uL (1.40-6.50); %Basophils 0.2 % (0.0-1.0); %Eosinophils 1.2 % (0.0-10.0); %Lymphocytes 10.8 % (21.0-51.0); %Monocytes 11.1 % (0.0-10.0); %Neutrophils 76.7 % (42.0-75.0); Hemoglobin 13.5 g/dL (12.0-16.0); Mean Corpuscular Hemoglobin 29.5 pg (27.0-31.0); Mean Platelet Volume 7.3 fL (7.4-10.4); Platelet Count 414 thou/uL (130-400); RBC Distribution Width 12.4 % (11.5-14.5); White Blood Cell (WBC) Count 9.5 thou/uL (4.8-10.8)
[2021-10-28 11:36] LABS: ALT (SGPT) 19 U/L (8-55); AST (SGOT) 17 U/L (5-34); Albumin 4.5 g/dL (3.4-4.8); Alkaline Phosphatase 70 U/L (40-110); Anion Gap 16 mmol/L (10-20); BUN (Urea Nitrogen) 12 mg/dL (9.8-20.1); Bilirubin, Total 0.4 mg/dL (0.2-1.2); Calc. Creatinine Clearance 0 mL/min (70-130); Calcium 9.5 mg/dL (7.8-10.44); Carbon Dioxide 22 mmol/L (23-31); Chloride 100 mmol/L (98-107); Globulin 3.8 g/dL (2.4-3.5); Glucose 92 mg/dL (80-115); Protein, Total 8.3 g/dL (5.8-8.1); Sodium 134 mmol/L (136-145)
== END 2021-10-28 12:16 | disposition home or self-care (01) ==
LOC: ERS 09:29
DX: J44.1 Chronic obstructive pulmonary disease with (acute) exacerbation (principal); J20.9 Acute bronchitis, unspecified; R00.0 Tachycardia, unspecified; I10 Essential (primary) hypertension; K21.9 Gastro-esophageal reflux disease without esophagitis; I45.6 Pre-excitation syndrome; E78.00 Pure hypercholesterolemia, unspecified; F17.210 Nicotine dependence, cigarettes, uncomplicated; Z79.899 Other long term (current) drug therapy
CPT/HCPCS: 36415; 71046; 80053; 83880; 84484; 85025; 93005; 94760; 96374; J2930; J7620

== ENCOUNTER 2021-10-30 21:23 | Emergency (ER) | payer BC ==
[2021-10-30] MEDS ORDERED: methylPREDNISolone Sod Succ/PF 125 MG/2 ML VIAL ONE (22:43)
[2021-10-30 22:47] LABS: #Lymphocytes 1.5 thou/uL (1.20-3.40); #Monocytes 1.3 thou/uL (0.11-0.59); #Neutrophils 9.1 thou/uL (1.40-6.50); %Basophils 0.1 % (0.0-1.0); %Eosinophils 0.2 % (0.0-10.0); %Lymphocytes 12.6 % (21.0-51.0); %Monocytes 10.6 % (0.0-10.0); %Neutrophils 76.5 % (42.0-75.0); Hemoglobin 13.6 g/dL (12.0-16.0); Mean Corpuscular HGB CONC 32.4 g/dL (32.0-36.0); Mean Corpuscular Volume 92.7 fL (78.0-98.0); Mean Platelet Volume 7.6 fL (7.4-10.4); Platelet Count 474 thou/uL (130-400); RBC Distribution Width 12.6 % (11.5-14.5); Red Blood Cell (RBC) Count 4.53 mill/uL (4.20-5.40)
[2021-10-30 23:01] LABS: SARS-CoV-2 NAA Rapid Test Not Detected (NotDetected)
[2021-10-30 23:10] LABS: ALT (SGPT) 19 U/L (8-55); AST (SGOT) 19 U/L (5-34); Albumin 4.6 g/dL (3.4-4.8); Alkaline Phosphatase 65 U/L (40-110); Anion Gap 16 mmol/L (10-20); BUN (Urea Nitrogen) 14 mg/dL (9.8-20.1); Bilirubin, Total 0.3 mg/dL (0.2-1.2); Calc. Creatinine Clearance 0 mL/min (70-130); Calcium 9.7 mg/dL (7.8-10.44); Carbon Dioxide 25 mmol/L (23-31); Chloride 102 mmol/L (98-107); Globulin 3.7 g/dL (2.4-3.5); Glucose 102 mg/dL (80-115); Lipase 20 U/L (8-78); Magnesium 1.9 mg/dL (1.6-2.6); Potassium 3.6 mmol/L (3.5-5.1); Protein, Total 8.3 g/dL (5.8-8.1); Sodium 139 mmol/L (136-145)
[2021-10-30 23:18] LABS: INR-International Normal Ratio 0.9; Prothrombin Time 12.5 sec (12.0-14.7)
[2021-10-30] MEDS ORDERED: Magnesium 2 GM/50 ML BAG (IN WATER) ONE (23:36)
== END 2021-10-31 00:16 | disposition home or self-care (01) ==
LOC: ERS 21:23
DX: J10.1 Influenza due to other identified influenza virus with other respiratory manifestations (principal); J44.1 Chronic obstructive pulmonary disease with (acute) exacerbation; K21.9 Gastro-esophageal reflux disease without esophagitis; I10 Essential (primary) hypertension; E78.5 Hyperlipidemia, unspecified; Z20.822 Contact with and (suspected) exposure to COVID-19; Z79.51 Long term (current) use of inhaled steroids; Z79.899 Other long term (current) drug therapy; Z87.891 Personal history of nicotine dependence
CPT/HCPCS: 36415; 71045; 80053; 83690; 83735; 83880; 84443; 84484; 85025; 85610; 93005; 96374; 96375; J2930; J3475; J7620

== ENCOUNTER 2022-10-09 17:10 | Emergency (ER) | payer BC ==
[2022-10-09] MEDS ORDERED: Ipratropium/Albuterol 3 ML NEB ONE ×3 (17:38→18:09)
[2022-10-09] MEDS ORDERED: methylPREDNISolone Sod Succ/PF 125 MG/2 ML VIAL ONE (17:38)
[2022-10-09] MEDS ORDERED: Aspirin Chewable 81 MG TAB ONE (17:50)
[2022-10-09 18:16] LABS: #Basophils 0.1 thou/uL (0.0-0.2); #Eosinphils 0.2 thou/uL (0.0-0.7); #Lymphocytes 1.9 thou/uL (1.20-3.40); #Monocytes 1.1 thou/uL (0.11-0.59); #Neutrophils 5.8 thou/uL (1.40-6.50); %Basophils 0.8 % (0.0-1.0); %Eosinophils 1.7 % (0.0-10.0); %Monocytes 12.3 % (0.0-10.0); %Neutrophils 64.2 % (42.0-75.0); Hemoglobin 14.6 g/dL (12.0-16.0); Mean Corpuscular HGB CONC 35.2 g/dL (32.0-36.0); Mean Corpuscular Hemoglobin 31.3 pg (27.0-31.0); Mean Corpuscular Volume 88.8 fl (78.0-98.0); Mean Platelet Volume 7.6 fL (7.4-10.4); Platelet Count 409 10x3/uL (130-400); RBC Distribution Width 12.9 % (11.5-14.5); Red Blood Cell (RBC) Count 4.67 mill/uL (4.20-5.40)
[2022-10-09 18:33] LABS: ALT (SGPT) 30 U/L (8-55); AST (SGOT) 20 U/L (5-34); Albumin 4.8 g/dL (3.4-4.8); Alkaline Phosphatase 79 U/L (40-110); Anion Gap 16 mmol/L (10-20); BUN (Urea Nitrogen) 11 mg/dL (9.8-20.1); Bilirubin, Total 0.4 mg/dL (0.2-1.2); Calc. Creatinine Clearance 0 mL/min (70-130); Calcium 9.8 mg/dL (7.8-10.44); Carbon Dioxide 25 mmol/L (23-31); Chloride 99 mmol/L (98-107); Estimated GFR 77; Globulin 3.6 g/dL (2.4-3.5); Glucose 97 mg/dL (80-115); Protein, Total 8.4 g/dL (5.8-8.1); Sodium 136 mmol/L (136-145)
[2022-10-09 18:37] LABS: Actual Bicarbonate (HCO3v) 26 mEq/L (22-28); Base Excess 0.3 mEq/L (-2.0 to +3.0); Calcium, Ionized (venous) 1.14 mmol/L (1.16-1.32); Chloride (VBG) 98 mmol/L (98-106); Potassium (VBG) 3.81 mmol/L (3.70-5.30); Sodium 137.1 mmol/L (133-146); pH (venous) 7.36 (7.32-7.43)
== END 2022-10-09 20:20 | disposition home or self-care (01) ==
LOC: ERS 17:10
DX: J44.1 Chronic obstructive pulmonary disease with (acute) exacerbation (principal); K21.9 Gastro-esophageal reflux disease without esophagitis; I10 Essential (primary) hypertension; E78.00 Pure hypercholesterolemia, unspecified; F17.210 Nicotine dependence, cigarettes, uncomplicated
CPT/HCPCS: 36415; 71045; 80053; 82805; 84484; 85025; 93005; 94760; 96374; J2930; J7620